=== PATIENT | female | born 1995 | race Caucasian/White ===

== ENCOUNTER 2023-03-20 13:54 | Inpatient (IN) | payer BC ==
[2023-03-20 15:04] LABS: ALT 17 U/L (4-34); AST 19 U/L (14-36); African American GFR (CKD) >90 (>60 ml/min/1.73 sqM); Basophils % (A) 0 %; Blood Urea Nitrogen 6 mg/dL (7-17); Eosinophils % (A) 1 %; HCT 36.6 % (34.0-46.0); Lymphocytes # (A) 1.2 k/uL (1.0-4.8); Lymphocytes % (A) 15 %; MCH 28.2 pg (25.0-35.0); MCHC 32.7 g/dL (31.0-37.0); MCV 86.4 fL (80.0-100.0); Mean Platelet Volume 9.8; Monocytes # (A) 0.3 k/uL (0-1.0); Monocytes % (A) 4 %; Neutrophils % (A) 79 %; Non-African American GFR(CKD) >90 (>60 ml/min/1.73 sqM); Platelet Count 209 k/uL (150-450); RBC 4.24 m/uL (3.80-5.40); RDW 13.6 % (11.5-15.5); Uric Acid 5.5 mg/dL (3.7-7.4); WBC 7.6 k/uL (3.8-10.6)
[2023-03-20 16:33] LABS: Protein/Creatinine Ratio,Urine 0.18
[2023-03-20] MEDS ORDERED: LIDOCAINE 1% (10MG/ML) FOR IV START INTRADERMA PRN (16:33)
[2023-03-20 16:35] LABS: Amorphous Sediment,Urine Few /hpf; Appearance,Urine Cloudy (Clear); Bacteria,Urine Rare /hpf; Bilirubin,Urine Negative (Negative); Blood,Urine Trace (Negative); Color,Urine Yellow; Glucose,Urine (UA) Negative (Negative); Ketones,Urine Negative (Negative); Leukocyte Esterase,Urine Moderate (Negative); Mucus,Urine Rare /hpf; Nitrite,Urine Negative (Negative); Protein,Urine Negative (Negative); RBC,Urine 18 /hpf (0-5); Specific Gravity,Urine 1.014 (1.001-1.035); Squamous Epithelial Cell,Urine 3 /hpf (0-4); Urobilinogen,Urine <2.0 mg/dL (<2.0); WBC,Urine 4 /hpf (0-5)
[2023-03-20 16:36] LABS: Creatinine,Urine Random 113.3 mg/dL
[2023-03-20] MEDS ORDERED: LIDOCAINE 0.5% (PF) 5 MG/ML (50 ML SDV) SQ PRN (17:02)
[2023-03-20] MEDS ORDERED: METHYLERGONOVINE 0.2 MG/ML 1 ML AMP IM PRN (17:02)
[2023-03-20] MEDS ORDERED: TRANEXAMIC ACID IN NACL,ISO-OS 1,000 MG in EMPTY BAG 1 BAG IV PRN (17:02)
[2023-03-20] MEDS ORDERED: TERBUTALINE 1 MG/ML VIAL SQ PRN (17:02)
[2023-03-20] MEDS ORDERED: OXYTOCIN 10 UNIT/ML 1 ML VIAL IM PRN (17:02)
[2023-03-20] MEDS ORDERED: CARBOPROST TROMETHAMINE 250 MCG/ML 1 ML AMP IM PRN (17:02)
[2023-03-20] MEDS ORDERED: miSOPROStoL 200 MCG TAB PO PRN (17:02)
[2023-03-20] MEDS: LACTATED RINGERS 1,000 ML IV SCH ×3 (17:10→22:06)
[2023-03-20] MEDS ORDERED: OXYTOCIN 30 UNITS/500 ML NS 30 UNIT in SALINE 1 500ML.BAG IV SCH (17:15)
[2023-03-20] MEDS ORDERED: LACTATED RINGERS 1,000 ML IV SCH (17:15)
[2023-03-20] MEDS ORDERED: BUTORPHANOL 2 MG/ML 1 ML VIAL IV PRN (17:51)
--- NOTE | 2023-03-20 18:01 | P.HPOB ---
History of Present Illness H&P Date: 03/20/23 Chief Complaint: Medical induction of labor 27 year old at 38 weeks and 4 days with EDC of 03/30/2023 by LMP 3rd trimester US here for medical induction of labor for gestational hypertension. The patient is noted to have mild range blood pressure more than 4 hours apart t alia. She also had a non-sustained severe-range blood pressure this morning in the office of 160/98. The patient denies headache, visual disturbances, and right upper quadrant pain. PIH labs are within normal limits and urine protein to creatinine ratio is 0.18. The has been complicated by polyhydramnios that resolved with the last ultrasound. Estimated weight based on a 35 week ultrasound was estimated to be in the 58%ile. Maternal serologies: blood type A positive, antibody negative, rubella non- immune, VDRL non-reactive, HBsAg negative, HIV negative, 1 hour GTT 125, GBS ne gative. Past Medical History Past Medical History: No Reported History History of Any Multi-Drug Resistant Organisms: None Reported Additional Past Surgical History / Comment(s): wisdom teeth removed in 2016 Past Anesthesia/Blood Transfusion Reactions: No Reported Reaction Past Psychological History: Anxiety Smoking Status: Never smoker Past Drug Use History: None Reported Medications and Allergies Home Medications Medication Instructions Recorded Confirmed Type Vit No.179/Iron/Folic 1 tablet PO DAILY 03/20/23 03/20/23 History [ Tablet] Allergies Allergy/AdvReac Type Severity Reaction Status Date / Time No Known Allergies Allergy Verified 03/20/23 13:58 Exam Vital Signs Temp Pulse Resp BP Pulse Ox 03/20/23 15:20 97.5 F L 123 H 17 137/93 98 Intake and Output 03/20/23 03/20/23 03/20/23 06:59 14:59 22:59 Other: Weight 105.687 kg 105.687 kg Focused physical exam is performed. Cervix is soft, closed, long, and high. Cooks catheter balloon is inserted through the cervix with 60 cc in each balloon. heart tones are reactive and reassuring. Results Result Diagrams: 03/20/23 14:31 03/20/23 14:31 Abnormal Lab Results - Last 24 Hours (Table) 03/20/23 03/20/23 03/20/23 Range/Units 14:31 15:50 15:50 BUN 6 L (7-17) mg/dL Urine Appearance Cloudy H (Clear) Urine Blood Trace H (Negative) Ur Leukocyte Esterase Moderate H (Negative) Urine RBC 18 H (0-5) /hpf Amorphous Sediment Few H (None) /hpf Urine Bacteria Rare H (None) /hpf Urine Mucus Rare H (None) /hpf U Random Total Protein 19 H (<12) mg/dL Assessment and Plan Assessment: 27 year old at 38 weeks and 4 days being medically induced for gestational hypertension Plan: Admit, NPO, mIVF, cooks catheter for 12 hours with low-dose oxytocin, nitrous oxide or stadol prn for pain, continuous EFM, close monitoring of patient. Time with Patient: Less than 30 (15 minutes)
[2023-03-21] MEDS: LACTATED RINGERS 1,000 ML IV SCH (05:47)
[2023-03-21] MEDS ORDERED: fentaNYL (PF) 50 MCG/ML 5 ML AMP ONE (10:55)
[2023-03-21] MEDS ORDERED: ROPIVACAINE 5 MG/ML 20 ML AMPULE ONE (10:55)
[2023-03-21] MEDS ORDERED: SODIUM CHLORIDE 0.9% 100 ML BAG ONE (10:55)
--- NOTE | 2023-03-21 18:40 | P.PROBDLV ---
Vaginal Delivery Note - . Vaginal Delivery Note: DATE OF SERVICE: 03/21/2023 PROCEDURE: Normal Vaginal Delivery ATTENDING: Dr. Porsha Elias MD ESTIMATED BLOOD LOSS: 200 mL FINDINGS: VFI, Apgars 9/9, Weight 7#1oz PROCEDURE: Patient was a 27 y/o at 38 weeks and 5 days being medically induced for gestational hypertension. Please see admitting H&P for further details. Cooks catheter was placed for 12 hours with low dose oxytocin. After removal of the cooks, artificial rupture of membranes was undertaken and clear fluid was noted. Oxytocin was increased per protocol. The patient received epidural anesthesia per her request. The patient progressed to complete and pushed for approximately 3 hours. Head delivered without difficulty followed by shoulders and body over intact perineum. Infant placed on maternal abdomen and bulb suctioned. Cord was clamped and cut after a 30 second delay. Placenta delivered whole with gentle cord traction. Oxytocin was started to facilitate uterine tone. Uterine fundus firm and bleeding minimal upon fundal massage. Perineal inspection revealed a second degree laceration repaired in the usual fashion with 2-0 Vicryl. The bladder was drained with a straight catheter for 100 cc of urine. Rectal exam was performed and confirmed no involvement of the rectum. Patient stable .
[2023-03-21] MEDS ORDERED: BENZOCAINE/MENTHOL SPRAY 1 GM/SPRAY AEROSOL TOPICAL PRN (18:41)
[2023-03-21] MEDS ORDERED: LANOLIN CREAM 5 GM TUBE TOPICAL PRN (18:41)
[2023-03-21] MEDS ORDERED: SIMETHICONE 80 MG CHEWABLE PO PRN (18:41)
[2023-03-21] MEDS ORDERED: diphenhydrAMINE 50 MG CAP PO PRN (18:41)
[2023-03-21] MEDS ORDERED: diphenhydrAMINE 25 MG CAP PO PRN (18:41)
[2023-03-21] MEDS ORDERED: ZOLPIDEM 5 MG TAB PO PRN (18:41)
[2023-03-21] MEDS ORDERED: diphenhydrAMINE 50 MG/ML 1 ML VIAL IVP PRN ×2 (18:41)
[2023-03-21] MEDS ORDERED: HYDROCORTISONE 2.5% RECTAL CREAM 30 GM TUBE RECTAL PRN (18:41)
[2023-03-21] MEDS ORDERED: MEASLES-MUMPS-RUBELLA VACC/PF 12,500 UNIT/0.5 ML VIAL SQ ONE (18:41)
[2023-03-21] MEDS ORDERED: OXYTOCIN 30 UNITS/500 ML NS 30 UNIT in SALINE 1 500ML.BAG IV SCH (18:45)
[2023-03-21 18:55] VITALS: RESP 16
[2023-03-21] MEDS: IBUPROFEN 600 MG TAB PO PRN (19:45)
[2023-03-21] MEDS: SENNOSIDES-DOCUSATE SODIUM 1 EACH TAB PO SCH (19:46)
[2023-03-22] MEDS: IBUPROFEN 600 MG TAB PO PRN ×3 (04:49→19:03)
--- NOTE | 2023-03-22 08:34 | P.DS ---
Providers Date of admission: 03/20/23 15:24 Expected date of discharge: 03/22/23 Attending physician: Porsha Elias MD Primary care physician: Stated None Hospital Course: This is a 27-year-old now 1 para 1001 day #1 status post medical induction for gestational hypertension who desires discharge home. The patient is doing well this morning and had no acute events overnight. She has no complaints this morning. She reports moderate lochia, passing flatus, voiding without difficulty, ambulating, and eating/drinking without nausea or vomiting. She is formula feeding her without difficulty. She denies chest pain, shortness of breathing, fevers, or chills overnight. She denies pain or swelling in the legs. blood pressures have been normotensive to mild range. She denies headache, visual disturbances, and right upper quadrant pain. We discussed that if bleeding becomes exceedingly heavy, she is experiencing any foul-smelling discharge, if she is having severe pain not getting worse instead of better, if she has any fevers or chills she should call the office. She will follow-up in the office in 1 week for a blood pressure check. She'll follow up in 6 weeks for her appointment. We discussed pelvic rest for 6 weeks and activity as tolerated. All questions are answered at this time. Assessment: 27-year-old now 1 para 1001 day #1 status post medical induction of labor for gestational hypertension followed by normal vaginal delivery at 38 weeks and 5 days Patient Condition at Discharge: Good Plan - Discharge Summary New Discharge Prescriptions: No Action Vit No.179/Iron/Folic [ Tablet] 1 tablet PO DAILY Discharge Medication List Vit No.179/Iron/Folic [ Tablet] 1 tablet PO DAILY 03/20/23 [History] Follow up Appointment(s)/Referral(s): Porsha Elias MD [STAFF PHYSICIAN] - 1 Week (blood pressure check) Patient Instructions/Handouts: Hypertension During (DC), Depression (DC), Perineal Care (DC), Bleeding (DC) Activity/Diet/Wound Care/Special Instructions: Pelvic rest for 6 weeks. Otherwise, activity as tolerated Discharge Disposition: HOME SELF-CARE
[2023-03-22] MEDS: ACETAMINOPHEN TAB 325 MG TAB PO PRN ×2 (09:22→14:34)
[2023-03-22] MEDS: SENNOSIDES-DOCUSATE SODIUM 1 EACH TAB PO SCH (10:57)
[2023-03-22] MEDS: LACTATED RINGERS 1,000 ML IV SCH ×2 (11:25→11:26)
[2023-03-22 16:16] VITALS: BP 128/81; PULSE 101; TEMP 97.5
== END 2023-03-22 19:12 | disposition home or self-care (01) | DRG 807 ==
LOC: FBPOP 13:54 → 4FBP 15:24
PROVIDERS: ADMIT Obstetrics & Gynecology; ATTEND Obstetrics & Gynecology
PROC: 0U7C7ZZ Dilation of Cervix, Via Natural or Artificial Opening (ICD-10-PCS; principal; 2023-03-20)
PROC: 3E033VJ Introduction of Other Hormone into Peripheral Vein, Percutaneous Approach (ICD-10-PCS; principal; 2023-03-20)
PROC: 0KQM0ZZ Repair Perineum Muscle, Open Approach (ICD-10-PCS; 2023-03-21)
PROC: 10907ZC Drainage of Amniotic Fluid, Therapeutic from Products of Conception, Via Natural or Artificial Opening (ICD-10-PCS; 2023-03-21)
PROC: 10E0XZZ Delivery of Products of Conception, External Approach (ICD-10-PCS; 2023-03-21)
DX: O13.4 Gestational [pregnancy-induced] hypertension without significant proteinuria, complicating childbirth (principal); Z37.0 Single live birth; O99.344 Other mental disorders complicating childbirth; F41.9 Anxiety disorder, unspecified; O70.1 Second degree perineal laceration during delivery; Z3A.38 38 weeks gestation of pregnancy
CPT/HCPCS: 59025; 81001; 82565; 82570; 84156; 84450; 84460; 84520; 84550; 85025; 86850; 86900; 86901; 90707